=== PATIENT | male | born 1955 | race Caucasian/White ===

== ENCOUNTER 2022-09-23 08:21 | Outpatient (CLI) | payer MEDICARE, BC, SELFPAY ==
[2022-09-23 13:59] LABS: Chloride* 95 mmol/L (96-114); Potassium* 4.4 mmol/L (3.6-5.1); Sodium* 126 mmol/L (135-149)
[2022-09-23 14:02] LABS: Blood Urea Nitrogen* 15 mg/dL (7-30); Carbon Dioxide* 24 mmol/L (20-32); Cholesterol* 216 mg/dL (90-199); Creatinine* 0.5 mg/dL (0.5-1.5); Estimated Glomerular Filt Rate 112 ml/min; Glucose* 84 mg/dL (60-115)
[2022-09-23 14:03] LABS: Calcium* 7.8 mg/dL (8.4-10.6); HDL Cholesterol* 17 mg/dL (>=40)
[2022-09-23 14:22] LABS: PSA Screen* 0.79 ng/mL (0.10-4.00)
[2022-09-23 16:37] LABS: Triglycerides* 1719 mg/dL (40-149)
== END 2022-09-23 08:22 | disposition home or self-care (01) ==
PROVIDERS: PCP Family Medicine; Visit Provider Family Medicine
DX: Z01.818 Encounter for other preprocedural examination (principal); Z12.5 Encounter for screening for malignant neoplasm of prostate; Z13.6 Encounter for screening for cardiovascular disorders
CPT/HCPCS: 80048; 80061; 84153

== ENCOUNTER 2022-09-26 13:50 | Outpatient (CLI) | payer MEDICARE, BC, SELFPAY ==
[2022-09-26 12:38] LABS: Cholesterol* 232 mg/dL (90-199); HDL Cholesterol* 19 mg/dL (>=40)
[2022-09-26 13:25] LABS: Triglycerides* > 2625 mg/dL (40-149)
== END 2022-09-26 13:51 | disposition home or self-care (01) ==
PROVIDERS: PCP Family Medicine; Visit Provider Family Medicine
DX: E78.5 Hyperlipidemia, unspecified (principal)
CPT/HCPCS: 80061

== ENCOUNTER 2022-10-14 08:30 | Outpatient (CLI) | payer MEDICARE, BC, SELFPAY ==
--- NOTE | 2022-10-14 09:19 | W.ANESCHARGE ---
Anesthesia Charges Start Date/Time Anesthesia Start Date: 10/14/22 Anesthesia Start Time: 09:30 Stop Date/Time Anesthesia Stop Date: 10/14/22 Anesthesia Stop Time: 10:07 Summary Emergency: No
--- NOTE | 2022-10-14 10:07 | W.ANESCHARGE ---
Anesthesia Charges Start Date/Time Anesthesia Start Date: 10/14/22 Anesthesia Start Time: 09:30 Stop Date/Time Anesthesia Stop Date: 10/14/22 Anesthesia Stop Time: 10:07 Summary Emergency: No
== END 2022-10-14 08:31 | disposition home or self-care (01) ==
PROVIDERS: PCP Family Medicine; Visit Provider Surgery
DX: Z12.11 Encounter for screening for malignant neoplasm of colon (principal); K63.5 Polyp of colon; Z80.0 Family history of malignant neoplasm of digestive organs; Z86.010 Personal history of colon polyps
CPT/HCPCS: 00811; 45385; 88305; J2704

== ENCOUNTER 2023-09-10 08:04 | Outpatient (REF) | payer MEDICARE, BC, SELFPAY | END 2023-09-10 08:05 | disposition home or self-care (01) | LOC: NFLDREF 08:04 | PROVIDERS: PCP Family Medicine; Referring Provider Family Medicine; Visit Provider Family Medicine | DX: E78.1 Pure hyperglyceridemia (principal) | CPT/HCPCS: 80061; 80076 ==

== ENCOUNTER 2024-12-07 08:46 | Outpatient (CLI) | payer MEDICARE, BC, SELFPAY | END 2024-12-07 08:47 | disposition home or self-care (01) | PROVIDERS: PCP Family Medicine; Visit Provider Family Medicine | DX: E78.1 Pure hyperglyceridemia (principal); Z12.5 Encounter for screening for malignant neoplasm of prostate; Z13.0 Encounter for screening for diseases of the blood and blood-forming organs and certain disorders involving the immune mechanism; Z13.1 Encounter for screening for diabetes mellitus | CPT/HCPCS: 80048; 80061; G0103 ==